=== PATIENT | female | born 1995 | race Hispanic/Latino ===

== ENCOUNTER 2024-01-17 21:25 | Emergency (ER) | payer BC ==
[~2024-01-17] VITALS: Ht 165.1 cm; Wt 133.8 kg
[2024-01-17] MEDS: DiphenhydrAMINE HCL 50 MG/ML VIAL IV ONE (22:06)
[2024-01-17] MEDS: metoCLOPRAmide 10 MG/2 ML VIAL IVP ONE (22:06)
[2024-01-17] MEDS: acetaMINOPHEN 500 MG TABLET PO ONE (22:06)
[2024-01-17] MEDS: 0.9%NACL 1000ML 1,000 ML IV ONE (22:06)
[2024-01-17 22:11] LABS: BASOPHILS # (AUTO) 0.06 K/uL (0.00-0.20); BASOPHILS % (AUTO) 0.5 % (0.0-5.0); EOSINOPHILS # (AUTO) 0.11 K/uL (0.00-0.70); EOSINOPHILS % (AUTO) 0.9 % (0.0-8.0); IMMATURE GRANULOCYTE ABSOLUTE 0.04 K/uL (0-1); LYMPHOCYTES # (AUTO) 3.1 K/uL (1.0-4.8); MEAN CORPUSCULAR HEMOGLOBIN 30.5 pg (27.0-33.0); MEAN CORPUSCULAR HGB CONC 33.8 g/dL (32.0-36.0); MEAN CORPUSCULAR VOLUME 90.3 fL (79-99); MONOCYTES # (AUTO) 0.7 K/uL (0.1-1.0); MONOCYTES % (AUTO) 5.5 % (3.0-13.0); NEUTROPHILS # (AUTO) 8.4 K/uL (1.8-7.7); NEUTROPHILS % (AUTO) 67.8 % (40.0-77.0); PLATELET COUNT (AUTO) 370 K/uL (130-400); RED BLOOD CELL COUNT(AUTO) 4.43 MIL/uL (4.00-5.50); RED CELL DISTRIBUTION WIDTH 11.8 % (11.0-15.5); WHITE BLOOD COUNT (AUTO) 12.3 K/uL (4.8-10.8)
[2024-01-17 22:23] LABS: CREATININE 0.9 mg/dL (0.5-1.0); POTASSIUM 4.2 mmol/L (3.5-5.1)
[2024-01-17 22:37] LABS: APPEARANCE,URINE CLEAR (CLEAR); BILIRUBIN,URINE NEGATIVE (NEGATIVE); COLOR,URINE COLORLESS (YELLOW); GLUCOSE, URINE (UA) NEGATIVE (NEGATIVE); KETONES,URINE NEGATIVE (NEGATIVE); LEUKOCYTE ESTERASE ,URINE NEGATIVE Leu/uL (NEGATIVE); NITRATE,URINE NEGATIVE (NEGATIVE); OCCULT BLOOD,URINE LARGE (NEGATIVE); PROTEIN,URINE NEGATIVE (NEGATIVE); UROBILINOGEN,URINE 0.2 mg/dL (0.2-1.0)
[2024-01-17 22:38] LABS: HCG,QUALITATIVE URINE NEGATIVE (NEGATIVE)
[2024-01-17 22:39] LABS: ADD UA MICROSCOPIC YES
[2024-01-17 22:43] LABS: BACTERIA,URINE RARE /HPF (None Seen); RBC,URINE 51-100 /HPF (0-1); SQUAMOUS EPITHELIAL CELL,UR FEW /HPF (0-2)
[2024-01-18 03:38] VITALS: BP 125/65; PULSE 87; RESP 18; TEMP 98.2; O2SAT 99
== END 2024-01-18 03:40 | disposition short-term general hospital (02) ==
LOC: EDH 21:25
DX: G43.909 Migraine, unspecified, not intractable, without status migrainosus (principal); G93.9 Disorder of brain, unspecified
CPT/HCPCS: 99285; 96374; 70450; 96361; 96375; 80048; 85025; 81001; 81025; 36415; J1200; J7030; J2765